=== PATIENT | female | born 1975 | race Two or more races ===

== ENCOUNTER 2016-03-04 14:59 | Emergency (ER) | payer MEDICAID, OTHER ==
[2016-03-04] MEDS ORDERED: ACETAMINOPHEN 500 MG TABLET ONE (16:48)
[2016-03-04] MEDS ORDERED: PENICILLIN G BENZATHINE 1.2 MMU/2 ML SYRINGE IM ONE (16:49)
[2016-03-04] MEDS ORDERED: PREDNISONE 20 MG TABLET ONE (16:49)
== END 2016-03-04 17:37 | disposition home or self-care (01) ==
LOC: ED 14:59
DX: J02.0 Streptococcal pharyngitis (principal)

== ENCOUNTER 2016-03-29 11:22 | Emergency (ER) | payer OTHER ==
[2016-03-29 11:54] LABS: SPECIFIC GRAVITY 1.015 (1.001-1.030); URINE BILIRUBIN NEGATIVE (NEGATIVE); URINE BLOOD 3+ (NEGATIVE); URINE GLUCOSE (UA) NEGATIVE (NEGATIVE); URINE LEUKOCYTE ESTERASE 2+ (NEGATIVE); URINE NITRITE NEGATIVE (NEGATIVE); URINE PROTEIN 2+ (NEGATIVE); URINE UROBILINOGEN NORMAL (0-1 mg/dl)
[2016-03-29 11:57] LABS: HCG,QUALITATIVE URINE NEGATIVE; URINE APPEARANCE HAZY; URINE COLOR YELLOW
[2016-03-29 12:00] LABS: URINE BACTERIA 3+; URINE RBC 30-40 /hpf; URINE WBC 50-100 /hpf
== END 2016-03-29 13:15 | disposition home or self-care (01) ==
LOC: ED 11:22
DX: N39.0 Urinary tract infection, site not specified (principal)